=== PATIENT | female | born 2005 | race Caucasian/White ===

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

== ENCOUNTER 2025-06-12 11:27 | Outpatient (CLI) | payer BC ==
--- NOTE | 2025-06-12 12:27 | RADIOLOGY REPORT ---
CLINICAL INDICATION: TMJ DYSFUCTION TECHNIQUE: 4 radiographic views of the facial bones were obtained. Comparison: None FINDINGS/IMPRESSION: There is no evidence of acute fracture or dislocation. The visualized joint space is well maintained. The alignment is anatomical. There is no radiopaque foreign body.
== END 2025-06-12 23:59 | disposition home or self-care (01) ==
LOC: RAD 11:27
PROVIDERS: ATTEND Family Medicine
DX: M26.609 Unspecified temporomandibular joint disorder, unspecified side (principal)
CPT/HCPCS: 70150